=== PATIENT | male | born 1960 | race Two or more races ===

== ENCOUNTER 2024-10-01 08:07 | Emergency (ER) | payer MEDICAID, SELFPAY ==
[2024-10-01 08:27] VITALS: BP 137/75; PULSE 66; RESP 18; TEMP 36.7; O2SAT 99
[2024-10-01 08:28] VITALS: BMI 23.3
[2024-10-01] MEDS: TETRACAINE PF OP SOL 0.5% 4 ML DRPETTE 1 DROP LEFT EYE (08:50)
[2024-10-01] MEDS: FLUORESCEIN SOD 1 MG STRP LEFT EYE (08:55)
--- NOTE | 2024-10-01 09:02 | EDNOTE_ITS ---
<Statement entered by Afua Chavarria MD - 10/04/24 07:15> As co-signing physician, I was present and available for consult prn. I concur with the plan and care as documented by the midlevel provider. ED Eye Problem RME/HPI General Chief complaint: Eye Problems Stated complaint: Something in left eye Time Seen by Provider: 10/01/24 08:29 Source: patient Arrival date/time: 10/01/24 08:07 This is a 64-year-old male who presents to the emergency department with complaints of left eye irritation every time he blinks. Patient reports he was cleaning some gutters outside and noticed air blew debris in his eye. Patient reports he had immediately attempted to wash eye out however has been having irritation every time he blinks since yesterday. Patient denies any other associated symptoms or aggravating factors. No modifying factors, no radiation, no migration. denies Vision issues Mode of arrival: ambulatory Limitations: no limitations Related Data Home Medications ?Medication ?Instructions ?Recorded ?Confirmed atorvastatin 20 mg tablet 20 mg PO QDAY 10/21/2310/21 levothyroxine 150 mcg tablet 150 mcg PO QDAY 10/21/23 10/21/23 Previous Rx's ?Medication ?Instructions ?Recorded erythromycin 5 mg/gram (0.5 %) eye 0.5 inch ophthalmic (eye) BID 5 10/01/24 ointment days #3.5 grams Allergies Allergy/AdvReac Type Severity Reaction Status Date / Time No Known Allergies Allergy Verified 10/01/24 08:09 Review of Systems Review of Systems Systems Reviewed: All systems reviewed, normal except as documented Narrative Review of Systems: Gen: No fever, no chills, no weight loss EYES: No discharge, no visual changes, no pain, + left eye irritation HEENT: No ear pain, no congestion, no sore throat PULM: No shortness of breath, no cough, no congestion CV: No chest pain, no dyspnea on exertion, no palpitations GI: No nausea, no vomiting, no diarrhea, no pain, no constipation : No frequency, no urgency,? no dysuria Musc/skel: No joint pain, no back pain Skin: No rash? ED Exam General Limitations: Present no limitations General appearance: Present alert and in no apparent distress Head Head exam: Present atraumatic Eye Eye exam: Present PERRL and EOMI Expanded Eye Exam Eyelids: right: erythema ENT ENT exam: Present normal exam, normal oropharynx and mucous membranes moist Neck Neck exam: Present normal inspection, full ROM and trachea midline Chest Chest inspection: Present normal inspection and symmetric chest wall rise Respiratory Respiratory exam: Present normal lung sounds bilaterally Cardiovascular Cardiovascular exam: Present regular rate, normal rhythm and normal heart sounds Abdominal Exam Abdominal exam: Present soft and normal bowel sounds Extremities Exam Extremities exam: Present normal inspection and full ROM Back Exam Back exam: Present normal inspection and full ROM Neurological Exam Neurological exam: Present alert, oriented X3 and CN II-XII intact Psychiatric Psychiatric exam: Present normal affect and normal mood Skin Skin exam: Present warm, dry, intact and normal color Course Quality Measures none Orders Category Date Time Status Schaffer Lamp to Bedside X1 Care 10/01/24 08:44 Completed Fluorescein Sodium [[id number]] Med 10/01/24 08:44 Discontinued 1 mg LEFT EYE X1 ONE TETRACAINE Op Aicha 0.5% [Pontocaine Op Aicha 0.5%] Med 10/01/24 08:44 Discontinued 1 drop LEFT EYE X1 ONE Vital Signs Vital signs: Vital Signs Temperature 98.0 F 10/01/24 08:27 Pulse Rate 66 10/01/24 08:27 Respiratory Rate 18 10/01/24 08:27 Blood Pressure 137/75 H 10/01/24 08:27 Pulse Oximetry (%) 99 10/01/24 08:27 Oxygen Delivery Method Room Air 10/01/24 08:27 Eye MDM Narrative MDM Narrative:: Patient noted to have corneal abrasion on fluorescein examination with wood's lamp of the left eye. Patient denies use contact lens use, and has no other findings suggestive of corneal ulceration at this time. No evidence of a positive Michael test or other findings suggestive of globe perforation on evaluation in the ED. No evidence of corneal foreign body on exam. Significant improvement in pain and visual acuity noted with application of topical anesthetic to the eye. Prior to discharge, we discussed return precautions, treatment with lubricating eye drops and NSAIDs, ABX and follow up with primary care doctor within 1 week as needed for further evaluation, and the patient demonstrated understanding and agreement. Patient data External records reviewed:: [facility] previous records Clinical information provided by:: patient Social determinants that could affect healthcare access:: none Patient has the following chronic illnesses:: None How is presenting disease/condition affected by chronic disease/condition?: no chronic disease Evaluation data The following diagnostics were reviewed and interpreted by me:: other (specify) Lab and/or radiology exams considered but not ordered:: No Interpretation Summary: No Medications / Prescriptions Medications or Prescriptions considered but not ordered:: No Medication administrations:: Medication Administration History Discontinued Medications Fluorescein Sodium (Fluorescein Sod 1 Mg Strp) 1 mg LEFT EYE X1 ONE Stop: 10/01/24 08:45 Last Admin: 10/01/24 08:55 Dose: 1 mg Documented By: KURT Tetracaine HCl (Tetracaine Pf Op Aicha 0.5% 4 Ml Drpette) 1 drop LEFT EYE X1 ONE Stop: 10/01/24 08:45 Last Admin: 10/01/24 08:50 Dose: 1 drop Documented By: KURT All medications administered and effective Consultations Consultation(s) initiated? (list below): No Diagnosis Eye Problem Differential Diagnosis: corneal abrasion, conjunctivitis, periorbital cellulitis, subconjunctival hemorrhage and corneal ulcer Most likely diagnosis given after review of the tests above:: Foreign body removed I Admission Indicated Admission indicated?: not indicated Admission Request Was there a request for admission?: No Disposition Plan Disposition Plan: Discharge Discharge Attestation Discharge Attestation: The patient and all family members were given an opportunity to ask questions and understood the discharge instructions. Discharge instructions specifically effects, indications for sooner follow up or return to the emergency department, and the expected course of current diagnosis. Patient condition: Stable Discharge Plan Plan Patient Disposition: HOME (Self Care) Prescriptions/Referrals Prescriptions/Med Rec: New erythromycin 5 mg/gram (0.5 %) ointment 0.5 inch ophthalmic (eye) BID 5 Days Qty: 3.5 0RF No Action atorvastatin 20 mg tablet 20 mg PO QDAY levothyroxine 150 mcg tablet 150 mcg PO QDAY Problem List Clinical Impression: Corneal abrasion, Foreign body in external eye Patient/Caregiver Discharge Instructions Education Materials: ED Corneal Abrasion Additional Instructions: Use gotas/pomadas antibi?trevon para los ojos seg?n las indicaciones para prevenir infecciones (p. ej., eritromicina o polimixina/trimetoprima). * Las l?grimas artificiales pueden ayudar a calmar el ken. * Evite la fatiga visual * Proteger los ojos * Evite las lentes de contacto Hacer un seguimiento: * Bruno un seguimiento con un oftalm?logo o proveedor de atenci?n primaria dentro de las 24 a 48 horas para asegurarse de que la abrasi?n est? sanando camilo cuadamente Use prescribed antibiotic eye drops/ointment as directed to prevent infection (e.g., erythromycin or polymyxin/trimethoprim). * Artificial tears can help soothe the eye. * Avoid Eye Strain * Protect the Eye * Avoid Contact Lenses Follow-Up: * Follow up with an eye doctor or primary care provider within 24-48 hours to ensure the abrasion is healing properly. Print Language: Albanian Stand Alone Forms: Yuliana Award Info., Patient Portal Info Letter PA/CHIEF ENGINEER WATERWORKS Supervising Physician PA/CHIEF ENGINEER [employer] Supervising Physician: Dr. Tejada
== END 2024-10-01 09:12 | disposition home or self-care (01) ==
LOC: SERX 09:16
PROVIDERS: Emergency Provider Emergency Medicine; PCP Nurse Practitioner Family
DX: S05.02XA Injury of conjunctiva and corneal abrasion without foreign body, left eye, initial encounter (principal); T15.92XA Foreign body on external eye, part unspecified, left eye, initial encounter; W44.8XXA Other foreign body entering into or through a natural orifice, initial encounter; Y93.H9 Activity, other involving exterior property and land maintenance, building and construction
CPT/HCPCS: 99283

== ENCOUNTER 2025-05-15 07:12 | Emergency (ER) | payer MEDICAID, SELFPAY ==
[2025-05-15 07:13] VITALS: BMI 23.6
[2025-05-15 07:22] VITALS: BP 139/83; PULSE 56; RESP 17; TEMP 36.7; O2SAT 98
--- NOTE | 2025-05-15 07:35 | EDNOTE_ITS ---
ED Eye Problem RME/HPI General Chief complaint: Eye Problems Stated complaint: LEFT EYE PAIN SWELLING AND PAIN Time Seen by Provider: 05/15/25 07:23 Source: patient Arrival date/time: 05/15/25 07:12 64-year-old male with a history of hyperlipidemia and hypothyroidism presents to the emergency room with a chief complaint of irritation, tenderness, mild swelling to his left eye x 2 days Mode of arrival: ambulatory Limitations: no limitations Related Data Home Medications ?Medication ?Instructions ?Recorded ?Confirmed atorvastatin 20 mg tablet 20 mg PO QDAY 10/21/2310/21 levothyroxine 150 mcg tablet 150 mcg PO QDAY 10/21/23 10/21/23 Previous Rx's ?Medication ?Instructions ?Recorded ciprofloxacin HCl 0.3 % eye drops See Rx Instructions ophthalmic 05/15/25 (eye) .COMPLEX #5 mL Allergies Allergy/AdvReac Type Severity Reaction Status Date / Time No Known Allergies Allergy Verified 05/15/25 07:16 Review of Systems Review of Systems Systems Reviewed: All systems reviewed, normal except as documented Constitutional Constitutional: Reports system reviewed and no additional complaints, except as documented, Denies fatigue, Denies fever(s), Denies headache(s) and Denies weakness Eyes Eyes: Reports system reviewed and no additional complaints, except as documented, Denies blind spots, Reports blurry vision, Denies change in vision, Denies decreased night vision, Denies diplopia, Denies eye discharge, Denies dry eyes, Denies exophthalmos, Denies floaters, Reports irritation, Denies itchy eyes, Denies loss of peripheral vision, Denies loss of vision, Denies other visual disturbances, Reports eye pain, Denies photophobia, Denies requires corrective lenses, Denies seeing flashes, Denies spots in vision and Denies tunnel vision ENT Ears, Nose, Mouth, and Throat: Reports system reviewed and no additional complaints, except as documented, Denies otalgia, Denies headache(s), Denies nasal congestion, Denies throat swelling and Denies vertigo Cardiovascular Cardiovascular: Reports system reviewed and no additional complaints, except as documented, Denies chest pain, Denies dyspnea and Denies dyspnea on exertion Respiratory Respiratory: Reports system reviewed and no additional complaints, except as documented, Denies chest congestion, Denies cough, Denies dyspnea, Denies dyspnea on exertion and Denies wheezing Gastrointestinal Gastrointestinal: Reports system reviewed and no additional complaints, except as documented, Denies abdominal pain, Denies cramping, Denies nausea and Denies vomiting Genitourinary Genitourinary: Reports system reviewed and no additional complaints, except as documented, Denies dysuria and Denies hematuria Musculoskeletal Musculoskeletal: Reports system reviewed and no additional complaints, except as documented and Denies back pain Integumentary/Breasts Skin/Breast: Reports system reviewed and no additional complaints, except as documented and Denies wounds Neurologic Neurologic: Reports system reviewed and no additional complaints, except as documented, Denies confusion, Denies headache(s), Denies lack of coordination, Denies loss of vision, Denies vertigo and Denies weakness Psychiatric Psychiatric: Reports system reviewed and no additional complaints, except as documented, Denies anxiety, Denies confusion, Denies depression, Denies paranoia, Denies suicidal ideation and Denies tactile hallucinations Endocrine Endocrine: Reports system reviewed and no additional complaints, except as documented and Denies fatigue Hematologic/Lymphatic Hematologic/Lymphatic: Reports system reviewed and no additional complaints, except as documented and Denies lymphadenopathy Allergic/Immunologic Allergic/Immunologic: Reports system reviewed and no additional complaints, except as documented, Denies itchy eyes, Denies throat swelling, Denies urticaria and Denies wheezing ED Exam General Limitations: Present no limitations General appearance: Present alert and in no apparent distress Head Head exam: Present atraumatic Eye Eye exam: Present normal appearance, PERRL and EOMI; Absent scleral icterus, conjunctival injection, nystagmus, miosis, mydriasis, periorbital swelling or periorbital tenderness Expanded Eye Exam Pupils: Bilateral: regular, round and reactive Sclera/Conjunctival: left: tenderness Visual acuity (R) = 20/: 40 Visual acuity (L) = 20/: 40 ENT ENT exam: Present normal exam, normal oropharynx and mucous membranes moist Neck Neck exam: Present normal inspection, full ROM and trachea midline Chest Chest inspection: Present normal inspection and symmetric chest wall rise Respiratory Respiratory exam: Present normal lung sounds bilaterally Cardiovascular Cardiovascular exam: Present regular rate, normal rhythm and normal heart sounds Abdominal Exam Abdominal exam: Present soft and normal bowel sounds Extremities Exam Extremities exam: Present normal inspection and full ROM Back Exam Back exam: Present normal inspection and full ROM Neurological Exam Neurological exam: Present alert, oriented X3 and CN II-XII intact Psychiatric Psychiatric exam: Present normal affect and normal mood Skin Skin exam: Present warm, dry, intact and normal color Course Quality Measures none Orders Category Date Time Status ED Eye Irrigation ONCE Care 05/15/25 07:27 Active Visual Acuity X1 Care 05/15/25 07:27 Active Schaffer Lamp to Bedside X1 Care 05/15/25 07:27 Active Fluorescein Sodium [Bio-Jonna] Med 05/15/25 07:26 Discontinued 1 mg LEFT EYE X1 ONE TETRACAINE Op Aicha 0.5% [Pontocaine Op Aicha 0.5%] Med 05/15/25 07:26 Discontinued 1 drop LEFT EYE X1 ONE Vital Signs Vital signs: Vital Signs Temperature 98.0 F 05/15/25 07:22 Pulse Rate 56 L 05/15/25 07:22 Respiratory Rate 17 05/15/25 07:22 Blood Pressure 139/83 H 05/15/25 07:22 Pulse Oximetry (%) 98 05/15/25 07:22 Oxygen Delivery Method Room Air 05/15/25 07:22 PROCEDURES: Schaffer Lamp Exam Left eye: Flourescein uptake:: Yes Schaffer Lamp Findings: Corneal abrasion Eye MDM Narrative MDM Narrative:: 64-year-old male with a history of hyperlipidemia and hypothyroidism presents to the emergency room with a chief complaint of irritation, tenderness, mild swelling to his left eye x 2 days Patient is hemodynamically stable and in no apparent distress This injury occurred Thursday morning. 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 Visual acuity test was completed and patient has 20/40 vision in the left eye and 20/20 vision bilaterally. The left eye was irrigated. A Schaffer lamp examination was completed and shows a corneal abrasion to the upper part of the cornea. There is no corneal ulceration, no rust ring, no hyphema. Antibiotics were sent to the patient's pharmacy. The patient was educated to follow-up with primary care provider as a referral to an structural metal fabricator apprentice may be indicated Patient was discharged and educated to follow-up with primary care provider in the next 24 to 48 hours and return to the emergency room for any evidence of worsening signs or symptoms Patient data External records reviewed:: [facility] previous records Clinical information provided by:: patient Social determinants that could affect healthcare access:: none Patient has the following chronic illnesses:: No chronic illness How is presenting disease/condition affected by chronic disease/condition?: no chronic disease Evaluation data The following diagnostics were reviewed and interpreted by me:: lab results and radiology exam(s) Lab and/or radiology exams considered but not ordered:: Labs and radiology exams considered and ordered Interpretation Summary: N/A Medications / Prescriptions Medications or Prescriptions considered but not ordered:: No medication given Medication administrations:: Medication Administration History Discontinued Medications Fluorescein Sodium (Fluorescein Sod 1 Mg Strp) 1 mg LEFT EYE X1 ONE Stop: 05/15/25 07:27 Last Admin: 05/15/25 07:38 Dose: 1 mg Documented By: EF Tetracaine HCl (Tetracaine Pf Op Aicha 0.5% 4 Ml Drpette) 1 drop LEFT EYE X1 ONE Stop: 05/15/25 07:27 Last Admin: 05/15/25 07:38 Dose: 1 drop Documented By: EF Medication given Consultations Consultation(s) initiated? (list below): No Diagnosis Eye Problem Differential Diagnosis: corneal abrasion, hyphema and corneal ulcer Most likely diagnosis given after review of the tests above:: Corneal abrasion Admission Indicated Admission indicated?: not indicated Admission Request Was there a request for admission?: No Disposition Plan Disposition Plan: Discharge Discharge Attestation Discharge Attestation: The patient and all family members were given an opportunity to ask questions and understood the discharge instructions. Discharge instructions specifically effects, indications for sooner follow up or return to the emergency department, and the expected course of current diagnosis. Patient condition: Stable Discharge Plan Plan Patient Disposition: HOME (Self Care) Discharge Disposition comment: Stable Prescriptions/Referrals Prescriptions/Med Rec: New ciprofloxacin HCl 0.3 % drops See Rx Instructions .ROUTE .COMPLEX Qty: 5 0RF Rx Instructions: put 1-2 drps in affected eye(s) every 2hr up to 8 times/day x2days; then 4 times/day x5days No Action atorvastatin 20 mg tablet 20 mg PO QDAY levothyroxine 150 mcg tablet 150 mcg PO QDAY Problem List Clinical Impression: Corneal abrasion Patient/Caregiver Discharge Instructions Education Materials: ED Corneal Abrasion Additional Instructions: Por favor, consulte con patrick m?dico de cabecera en las pr?ximas 24 a 48 horas. Los antibi?ticos se env?an a patrick farmacia; rec?jalos y t?melos seg?n las indicaciones. Si los signos y s?ntomas persisten, deber? consultar con patrick m?dico de cabecera, ya que podr?a ser necesaria casi derivaci?n a un oftalm?logo. Si observa cualquier signo de empeoramiento de los signos o s?ntomas, acuda inmediatamente a urgencias. Print Language: Kazakh Stand Alone Forms: Yuliana Award Info., Patient Portal Info Letter PA/PRODUCTION SUPPORT SUPERVISOR Supervising Physician PA/PRODUCTION SUPPORT SUPERVISOR Supervising Physician: Dr. Montero
[2025-05-15] MEDS: TETRACAINE PF OP SOL 0.5% 4 ML DRPETTE 1 DROP LEFT EYE (07:38)
[2025-05-15] MEDS: FLUORESCEIN SOD 1 MG STRP LEFT EYE (07:38)
== END 2025-05-15 09:59 | disposition home or self-care (01) ==
LOC: SERX 07:57
PROVIDERS: Emergency Provider Emergency Medicine; PCP Obstetrics & Gynecology
DX: S05.02XA Injury of conjunctiva and corneal abrasion without foreign body, left eye, initial encounter (principal); E78.5 Hyperlipidemia, unspecified; E03.9 Hypothyroidism, unspecified; X58.XXXA Exposure to other specified factors, initial encounter; Y93.89 Activity, other specified; Y92.69 Other specified industrial and construction area as the place of occurrence of the external cause; Y99.0 Civilian activity done for income or pay
CPT/HCPCS: 99284